=== PATIENT | male | born 1990 | race Caucasian/White ===

== ENCOUNTER 2018-01-23 07:27 | Emergency (ER) | payer OTHER ==
[2018-01-23 07:31] VITALS: BMI 19.6
[2018-01-23 07:33] VITALS: BP 116/69; PULSE 58; RESP 16; TEMP 97.9; O2SAT 100
--- NOTE | 2018-01-23 08:03 | ED PDOC ---
Lower Extremity Pain/Injury Time Seen by Provider: 01/23/18 07:55 Chief Complaint (Nursing): Lower Extremity Problem/Injury History Per: Patient History/Exam Limitations: no limitations Onset/Duration Of Symptoms: Other (x 6 months) Current Symptoms Are (Timing): Intermittent Episodes Additional Complaint(s): 27-year-old male presents to ED for left knee pain pain intermittently x 6 months. No recent injuries. Pain on bending and on ambulation. (-) fever. PMD: Joe Adhikari Past Medical History Reviewed: Historical Data, Nursing Documentation, Vital Signs Vital Signs: Last Vital Signs Temp 97.9 F 01/23/18 07:31 Pulse 58 L 01/23/18 07:31 Resp 16 01/23/18 07:31 BP 116/69 01/23/18 07:31 Pulse Ox 100 01/23/18 07:31 - Medical History PMH: No Chronic Diseases - Surgical History Surgical History: No Surg Hx - Family History Family History: States: Unknown Family Hx - Social History Current smoker - smoking cessation education provided: Yes Alcohol: Social Drugs: Denies - Immunization History Hx Tetanus Toxoid Vaccination: No Hx Influenza Vaccination: No Hx Pneumococcal Vaccination: No - Home Medications Home Medications: Ambulatory Orders Medication Instructions Recorded Naproxen [Naprosyn] 500 mg PO Q12H #20 tab 01/23/18 - Allergies Allergies/Adverse Reactions: Allergies Allergy/AdvReac Type Severity Reaction Status Date / Time No Known Allergies Allergy Verified 09/29/16 14:14 Review of Systems ROS Statement: Except As Marked, All Systems Reviewed And Found Negative Constitutional: Negative for: Fever Musculoskeletal: Positive for: Other (Left knee pain) Physical Exam - Reviewed Nursing Documentation Reviewed: Yes Vital Signs Reviewed: Yes - Physical Exam Extremity: Positive for: Other (Left knee: (+) mild discomfort in pain on flexion, tenderness over prepatellar area, (-) crepitus). Negative for: Swelling Neurologic/Psych: Positive for: Alert, Oriented (x 3). Negative for: Motor/ Sensory Deficits - ECG O2 Sat by Pulse Oximetry: 100 (RA) Pulse Ox Interpretation: Normal Medical Decision Making Medical Decision Making: Time: 08:00 Plan: - Left Knee X-Ray Scribe Attestation: Documented by Moisés Peterson, acting as a scribe for Florencio Burns MD Provider Scribe Attestation: All medical record entries made by the Scribe were at my direction and personally dictated by me. I have reviewed the chart and agree that the record accurately reflects my personal performance of the history, physical exam, medical decision making, and the department course for this patient. I have also personally directed, reviewed, and agree with the discharge instructions and disposition. Disposition - Clinical Impression Clinical Impression: Knee pain, Knee sprain - Patient ED Disposition Is Patient to be Admitted: No Counseled Patient/Family Regarding: Studies Performed, Diagnosis, Need For Followup, Rx Given - Disposition Referrals: Balbir Weeks MD [Staff Provider] - Disposition: Routine/Home Disposition Time: 09:05 Condition: FAIR Prescriptions: Naproxen [Naprosyn] 500 mg PO Q12H #20 tab Instructions: Knee Sprain (DC) Forms: [employer] (Montserratian)
--- NOTE | 2018-01-23 11:11 | RAD ---
PROCEDURE: Left Knee Radiographs. HISTORY: Pain. COMPARISON: None. FINDINGS: BONES: Normal. No fracture. JOINTS: Normal. No osteoarthritis. JOINT EFFUSION: None. OTHER FINDINGS: None. IMPRESSION: Normal radiographs of the left knee.
== END 2018-01-23 09:25 | disposition home or self-care (01) ==
LOC: H.ER 07:27
DX: M25.562 Pain in left knee (principal)

== ENCOUNTER 2018-04-23 19:09 | Emergency (ER) | payer OTHER, SELFPAY ==
[2018-04-23 19:09] VITALS: BMI 19.6
[2018-04-23] MEDS ORDERED: Alum-Mag Hydrox-Simethicone Susp (30 mL) ONE (21:03)
[2018-04-23] MEDS: Alum-Mag Hydrox-Simethicone Susp (30 mL) PO STA (21:07)
[2018-04-23 21:08] LABS: BASO # 0.1 K/uL (0.0-0.2); BASO % 0.8 % (0.0-2.0); EOS # 0.2 K/uL (0.0-0.7); EOS % 1.9 % (0.0-4.0); HEMOGLOBIN 14.8 g/dL (12.0-18.0); LYMPH # 2.9 K/uL (1.0-4.3); LYMPH % 33.8 % (20.0-40.0); MEAN CELL VOLUME 86.5 fl (80.0-94.0); MEAN CORPUSCULAR HEMOGLOBIN 29.5 pg (27.0-31.0); MEAN CORPUSCULAR HGB CONC 34.1 g/dL (33.0-37.0); MEAN PLATELET VOLUME 9.8 fl (7.2-11.7); MONO # 0.4 K/uL (0.0-0.8); MONO % 5.3 % (0.0-10.0); NEUT # 4.9 K/uL (1.8-7.0); NEUT % 58.2 % (50.0-75.0); NRBC % 0.1 % (0.0-0.0); RBC 5.03 Mil/uL (4.40-5.90); WHITE BLOOD COUNT 8.5 K/uL (4.8-10.8)
--- NOTE | 2018-04-23 21:41 | ED PDOC ---
HPI: Abdomen Time Seen by Provider: 04/23/18 20:20 Chief Complaint (Nursing): Abdominal Pain Chief Complaint (Provider): Abdominal Pain History Per: Patient History/Exam Limitations: no limitations Onset/Duration Of Symptoms: Intermittent Episodes (x1 week) Current Symptoms Are (Timing): Intermittent Episodes Additional Complaint(s): 27 year old male presents to the ED for evaluation of intermittent epigastric pain for one week associated with nausea and a decreased appetite. He also reports one episode of diarrhea at onset of symptoms, but it resolved by itself. Otherwise, denies vomiting, and black or bloody stool. PMD: Nabeel Issa Past Medical History Reviewed: Historical Data, Nursing Documentation, Vital Signs Vital Signs: Last Vital Signs Temp 98.1 F 04/23/18 19:17 Pulse 60 04/23/18 19:17 Resp 16 04/23/18 19:17 BP 133/76 04/23/18 19:17 Pulse Ox 98 04/23/18 21:45 - Medical History PMH: Gastritis - Surgical History Surgical History: No Surg Hx - Family History Family History: States: No Known Family Hx - Social History Current smoker - smoking cessation education provided: Yes Alcohol: Social Drugs: Denies - Immunization History Hx Tetanus Toxoid Vaccination: No Hx Influenza Vaccination: No Hx Pneumococcal Vaccination: No - Home Medications Home Medications: Ambulatory Orders Medication Instructions Recorded Naproxen [Naprosyn] 500 mg PO Q12H #20 tab 01/23/18 Famotidine [Pepcid] 40 mg PO DAILY PRN #30 tab 04/23/18 Ondansetron ODT [Zofran ODT] 1 odt PO Q6 PRN #20 odt 04/23/18 - Allergies Allergies/Adverse Reactions: Allergies Allergy/AdvReac Type Severity Reaction Status Date / Time No Known Allergies Allergy Verified 09/29/16 14:14 Review of Systems ROS Statement: Except As Marked, All Systems Reviewed And Found Negative Gastrointestinal: Positive for: Nausea, Abdominal Pain (epigastric), Diarrhea ( x1 episode). Negative for: Vomiting, Melena (or bloody stool) Physical Exam - Reviewed Nursing Documentation Reviewed: Yes Vital Signs Reviewed: Yes - Physical Exam Appears: Positive for: Non-toxic, No Acute Distress Head Exam: Positive for: ATRAUMATIC, NORMOCEPHALIC Skin: Positive for: Warm, Dry Eye Exam: Positive for: EOMI, PERRL ENT: Negative for: Pharyngeal Erythema, Tonsillar Exudate Neck: Positive for: Painless ROM, Supple Cardiovascular/Chest: Positive for: Regular Rate, Rhythm. Negative for: Murmur Respiratory: Positive for: Normal Breath Sounds. Negative for: Wheezing Gastrointestinal/Abdominal: Positive for: Tenderness (mild epigastric to palpation). Negative for: Mass, Guarding, Rebound, Other (valera's sign and mcburney's point tenderness) Back: Positive for: Normal Inspection. Negative for: Decreased ROM Extremity: Positive for: Normal ROM. Negative for: Deformity Lymphatic: Negative for: Adenopathy Neurologic/Psych: Positive for: Alert. Negative for: Motor/Sensory Deficits - Laboratory Results Result Diagrams: 04/23/18 21:03 04/23/18 21:03 - ECG O2 Sat by Pulse Oximetry: 98 (RA) Pulse Ox Interpretation: Normal Medical Decision Making Medical Decision Making: Time: 2049 Initial Impression: epigastric pain Ddx includes but is not limited to: gastritis, pancreatitis, reflux, dyspepsia Initial Plan: --EKG --CMP --Lipase --CBC with differential --Lidocaine 2% 10 ml PO --Maalox Plus 30 ml PO --Pepcid 40 mg PO Lab unremarkable. Pt's symptoms c/w non emergent pathology such as gastritis. DW pt findings and plan of care. Pepcid daily. Zofran prn. F/u PMD for GI referral. Scribe Attestation: Documented by Hanh Sanches, acting as a scribe for Diandra Harris MD. Provider Scribe Attestation: All medical record entries made by the Scribe were at my direction and personally dictated by me. I have reviewed the chart and agree that the record accurately reflects my personal performance of the history, physical exam, medical decision making, and the department course for this patient. I have also personally directed, reviewed, and agree with the discharge instructions and disposition. Disposition - Clinical Impression Clinical Impression: Abdominal pain Counseled Patient/Family Regarding: Studies Performed, Diagnosis, Need For Followup, Rx Given - Disposition Referrals: Jose Castanon [Medical Doctor] - 04/24/18 (VISITA A PAINTER DOCTOR POR LA MANANA A CHEQAR DE NUEVO Y POR UN REFERRAL A SPECIALISTA DE [place]) Daren Jenkins MD [Staff Provider] - Disposition: Routine/Home Disposition Time: 22:44 Condition: STABLE Prescriptions: Famotidine [Pepcid] 40 mg PO DAILY PRN #30 tab PRN Reason: reflux Ondansetron ODT [Zofran ODT] 1 odt PO Q6 PRN #20 odt PRN Reason: Nausea/Vomiting Instructions: Acute Abdomen (Belly Pain) Print Language: SLOVENIAN
[2018-04-23 22:48] LABS: ALB/GLOB RATIO 1.3 (1.0-2.1); ALBUMIN 4.3 g/dL (3.5-5.0); ALT/SGPT 24 U/L (21-72); AST/SGOT 45 U/L (17-59); BLOOD UREA NITROGEN 16 mg/dl (9-20); CALCIUM 9.5 mg/dL (8.4-10.2); GFR AFRICAN-AMERICAN > 60; GFR NON-AFRICAN AMERICAN > 60; LIPASE 47 U/L (23-300)
[2018-04-23 23:52] VITALS: BP 127/71; PULSE 64; RESP 17; TEMP 98.5; O2SAT 99
--- NOTE | 2018-04-24 07:17 | CARD ---
APPROVED REPORT Date of service: 04/23/2018 <Conclusion> Sinus bradycardia Otherwise normal ECG
== END 2018-04-23 22:52 | disposition home or self-care (01) ==
LOC: H.ER 19:09
DX: K29.70 Gastritis, unspecified, without bleeding (principal)

== ENCOUNTER 2018-04-28 23:23 | Emergency (ER) | payer SELFPAY ==
[2018-04-28 23:24] VITALS: BMI 19.6
[2018-04-29] MEDS ORDERED: Alum-Mag Hydrox-Simethicone Susp (30 mL) PO ONE (00:18)
--- NOTE | 2018-04-29 00:18 | ED PDOC ---
HPI: Abdomen History Per: Patient <Mireille Tate - Last Filed: 04/29/18 01:21> <Meka Del Rosario Y - Last Filed: 04/29/18 02:52> Chief Complaint (Nursing): Abdominal Pain Additional Complaint(s): 27M return to ER for epigastric discomfort after being seen in the ER 4 days ago for symptoms as per patient "exactly the same as before". He has been taking Pepcid as prescribed, however he reports he is still drinking soda, coffee, greasy foods and stopped smoking today. He denies any nausea, vomiting , diarrhea, SOB, chest pain. (ThahectorMireille) Past Medical History - Medical History PMH: No Chronic Diseases, Gastritis - Family History Family History: States: Unknown Family Hx - Immunization History Hx Tetanus Toxoid Vaccination: No Hx Influenza Vaccination: No Hx Pneumococcal Vaccination: No <Mireille Tate - Last Filed: 04/29/18 01:21> <Meka Del Rosario - Last Filed: 04/29/18 02:52> Vital Signs: Last Vital Signs Temp 97.7 F 04/28/18 23:34 Pulse 60 04/28/18 23:34 Resp 20 04/28/18 23:34 BP 121/76 04/28/18 23:34 Pulse Ox 100 04/29/18 01:22 - Home Medications Home Medications: Ambulatory Orders Medication Instructions Recorded Naproxen [Naprosyn] 500 mg PO Q12H #20 tab 01/23/18 Famotidine [Pepcid] 40 mg PO DAILY PRN #30 tab 04/23/18 Ondansetron ODT [Zofran ODT] 1 odt PO Q6 PRN #20 odt 04/23/18 - Allergies Allergies/Adverse Reactions: Allergies Allergy/AdvReac Type Severity Reaction Status Date / Time No Known Allergies Allergy Verified 04/28/18 23:34 Review of Systems ROS Statement: Except As Marked, All Systems Reviewed And Found Negative Gastrointestinal: Positive for: Abdominal Pain (epigastric) <Mireille Tate - Last Filed: 04/29/18 01:21> Physical Exam - Reviewed Vital Signs Reviewed: Yes - Physical Exam Appears: Positive for: Well, Non-toxic, No Acute Distress Head Exam: Positive for: ATRAUMATIC, NORMAL INSPECTION Skin: Positive for: Normal Color, Warm, Dry Eye Exam: Positive for: Normal appearance Neck: Positive for: Supple Cardiovascular/Chest: Positive for: Regular Rate, Rhythm Respiratory: Positive for: Normal Breath Sounds. Negative for: Crackles, Rales , Rhonchi, Wheezing Gastrointestinal/Abdominal: Positive for: Normal Exam, Bowel Sounds, Soft. Negative for: Tenderness (specifically no epigastric pain on palpation) Extremity: Positive for: Normal ROM Neurologic/Psych: Positive for: Alert <Mireille Tate - Last Filed: 04/29/18 01:21> - Laboratory Results Result Diagrams: 04/29/18 00:36 04/29/18 00:36 - ECG O2 Sat by Pulse Oximetry: 100 <Mireille Tate - Last Filed: 04/29/18 01:21> - Laboratory Results Result Diagrams: 04/29/18 00:36 04/29/18 00:36 <Meka Del Rosario - Last Filed: 04/29/18 02:52> Medical Decision Making <Mireille aTte - Last Filed: 04/29/18 01:21> <Meka Del Rosario - Last Filed: 04/29/18 02:52> Medical Decision Making: Ddx: gastritis, h. pylori infection - Mylanta, Pepcid - CBC, CMP - f/u PMD No anemia, however platelet-80 which is improved from prior visit. (Mireille Tate) 27yo male, recently treated for gastritis, comes to ER for evaluation of similar symptoms. Patient states he has mild mid epigastric pain but is able to tolerate PO intake. Labs reviewed and are within normal limits. Patient reports feeling better after Pepcid and Maalox and is stable for d/c home. (Meka Del Rosario Y) Disposition <Mireille Tate - Last Filed: 04/29/18 01:21> <Meka Del Rosario - Last Filed: 04/29/18 02:52> - Clinical Impression Clinical Impression: Gastritis - Disposition Referrals: [facility] [Outside] [facility] [Outside] Additional Instructions: FOLLOW UP WITH THE CLINIC IN 1-2 DAYS RETURN TO THE ED WITH ANY WORSENING OR CONCERNING SYMPTOMS Instructions: Gastritis (DC) Forms: [employer] (Swedish) - PA / [employer] / Resident Statement / has reviewed & agrees with the documentation as recorded. OSMIN has examined the patient and agrees with the treatment plan. <Meka Del Rosario Y - Last Filed: 04/29/18 02:52>
[2018-04-29 00:40] LABS: BASO % 0.5 % (0.0-2.0); EOS # 0.2 K/uL (0.0-0.7); EOS % 2.6 % (0.0-4.0); HEMOGLOBIN 14.2 g/dL (12.0-18.0); LYMPH # 2.2 K/uL (1.0-4.3); LYMPH % 33.6 % (20.0-40.0); MEAN CELL VOLUME 87.4 fl (80.0-94.0); MEAN CORPUSCULAR HEMOGLOBIN 29.6 pg (27.0-31.0); MEAN CORPUSCULAR HGB CONC 33.8 g/dL (33.0-37.0); MEAN PLATELET VOLUME 9.9 fl (7.2-11.7); MONO # 0.3 K/uL (0.0-0.8); MONO % 4.9 % (0.0-10.0); NEUT # 3.9 K/uL (1.8-7.0); NEUT % 58.4 % (50.0-75.0); RBC 4.79 Mil/uL (4.40-5.90); RED CELL DISTRIBUTION WIDTH 13.7 % (11.5-14.5); WHITE BLOOD COUNT 6.7 K/uL (4.8-10.8)
[2018-04-29] MEDS ORDERED: Alum-Mag Hydrox-Simethicone Susp (30 mL) ONE (00:40)
[2018-04-29 00:49] LABS: ALB/GLOB RATIO 1.4 (1.0-2.1); ALBUMIN 4.2 g/dL (3.5-5.0); ALT/SGPT 32 U/L (21-72); AST/SGOT 31 U/L (17-59); BLOOD UREA NITROGEN 14 mg/dl (9-20); CALCIUM 9.3 mg/dL (8.4-10.2); GFR AFRICAN-AMERICAN > 60; GFR NON-AFRICAN AMERICAN > 60; LIPASE 92 U/L (23-300)
[2018-04-29 03:06] VITALS: BP 125/87; PULSE 69; RESP 16; TEMP 98.5; O2SAT 98
== END 2018-04-29 03:05 | disposition home or self-care (01) ==
LOC: H.ER 23:23
DX: K29.70 Gastritis, unspecified, without bleeding (principal)

== ENCOUNTER 2018-07-13 13:07 | Emergency (ER) | payer SELFPAY ==
[2018-07-13 13:08] VITALS: BMI 19.6
[2018-07-13 13:15] VITALS: RESP 18; TEMP 97.7
--- NOTE | 2018-07-13 13:43 | ED PDOC ---
HPI: Chest Pain Time Seen by Provider: 07/13/18 13:20 Chief Complaint (Nursing): Chest Pain Chief Complaint (Provider): Chest pain History Per: Patient, Weight Loss Consultant (Evelia #[id number]) Additional Complaint(s): Pt reports sharp L sided CP X 1 week, intermittent, worse with deep breath, no radiation, no SOB, no nausea/vomiting. Did not take pain medication. Past Medical History Reviewed: Nursing Documentation, Vital Signs Vital Signs: Last Vital Signs Temp 97.7 F 07/13/18 13:11 Pulse 75 07/13/18 13:11 Resp 18 07/13/18 13:11 BP 116/68 07/13/18 13:11 Pulse Ox 99 07/13/18 13:11 - Medical History PMH: Gastritis Denies: Chronic Kidney Disease - Family History Family History: States: Unknown Family Hx - Social History Current smoker - smoking cessation education provided: Yes Alcohol: Occasional Drugs: Denies - Immunization History Hx Tetanus Toxoid Vaccination: No Hx Influenza Vaccination: No Hx Pneumococcal Vaccination: No - Home Medications Home Medications: Ambulatory Orders Medication Instructions Recorded Naproxen [Naprosyn] 500 mg PO Q12H #20 tab 01/23/18 Famotidine [Pepcid] 40 mg PO DAILY PRN #30 tab 04/23/18 Ondansetron ODT [Zofran ODT] 1 odt PO Q6 PRN #20 odt 04/23/18 Ibuprofen [Motrin] 600 mg PO Q6H PRN #20 tab 07/13/18 - Allergies Allergies/Adverse Reactions: Allergies Allergy/AdvReac Type Severity Reaction Status Date / Time No Known Allergies Allergy Verified 07/13/18 13:10 THOM Risk Score for UA/NSTEMI - THOM Risk Score Age > 64: NO 3 or more CAD Risk Factors: NO Known CAD (Stenosis greater than 50%): NO Aspirin use in past 7 days: NO Severe Angina: NO EKG ST changes greater than 0.5mm: NO Positive Cardiac Marker: NO THOM Score: 0 Risk %: 5% Wells Criteria for PE - Wells Criteria for Pulmonary Embolism Clinical Signs and Symptoms of DVT: No P.E is #1 Diagnosis, or Equally Likely: No Heart Rate >100: No Immobilization at least 3 days;Surgery previous 4 weeks: No Previous, objectively diagnosed PE or DVT: No Hemoptysis: No Malignancy w/treatment within 6 months, or palliative: No Total Score: 0 Review of Systems Constitutional: Negative for: Fever, Chills Cardiovascular: Positive for: Chest Pain. Negative for: Palpitations Respiratory: Negative for: Cough, Shortness of Breath Gastrointestinal: Negative for: Nausea, Vomiting, Abdominal Pain, Diarrhea Genitourinary Male: Negative for: Dysuria, Hematuria Musculoskeletal: Negative for: Neck Pain, Back Pain Skin: Negative for: Rash, Lesions Neurological: Negative for: Headache, Dizziness Physical Exam - Reviewed Nursing Documentation Reviewed: Yes Vital Signs Reviewed: Yes - Physical Exam Appears: Positive for: Well, No Acute Distress Head Exam: Positive for: ATRAUMATIC, NORMAL INSPECTION Skin: Positive for: Normal Color, Warm, Dry Eye Exam: Positive for: Normal appearance, EOMI, PERRL Neck: Positive for: Normal, Painless ROM, Supple Cardiovascular/Chest: Positive for: Regular Rate, Rhythm. Negative for: Murmur Respiratory: Positive for: Normal Breath Sounds. Negative for: Rales, Rhonchi, Wheezing Gastrointestinal/Abdominal: Positive for: Normal Exam Extremity: Positive for: Normal ROM. 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 O2 Sat by Pulse Oximetry: 99 Pulse Ox Interpretation: Normal Medical Decision Making Medical Decision Makin yo male with chest pain. - labs - EKG - CXR Accession No. : [id number] Patient Name / ID : ERNIE MENDOZA / [id number] Exam Date : 07/13/2018 13:46:22 ( Approved ) Study Comment : Sex / Age : M / 28Y Creator : Avery Haley MD Dictator : Avery Haley MD Fire Control Technician : Juvenile Court Liaison : Avery Haley MD Approver2 : Report Date : 07/13/2018 14:18:39 My Comment : Date of service: 07/13/2018 HISTORY: CP COMPARISON: No prior. TECHNIQUE: Chest PA and lateral FINDINGS: LUNGS: No active pulmonary disease. PLEURA: No significant pleural effusion identified. No pneumothorax apparent. CARDIOVASCULAR: No aortic atherosclerotic calcification present. Normal cardiac size. No pulmonary vascular congestion. OSSEOUS STRUCTURES: No significant abnormalities. VISUALIZED UPPER ABDOMEN: Normal. OTHER FINDINGS: None. IMPRESSION: No active disease. Disposition - Clinical Impression Clinical Impression: Atypical chest pain - Disposition Referrals: [facility] [place] [Outside] Disposition: Routine/Home Disposition Time: 15:52 Condition: STABLE Prescriptions: Ibuprofen [Motrin] 600 mg PO Q6H PRN #20 tab PRN Reason: Pain, Moderate (4-7) Instructions: Chest Pain Forms: [employer] (Djiboutian) Print Language: GEORGIAN - POMami Present On Arrival: Object Left In During Previous Surgery
--- NOTE | 2018-07-13 14:22 | RAD ---
Date of service: 07/13/2018 HISTORY: CP COMPARISON: No prior. TECHNIQUE: Chest PA and lateral FINDINGS: LUNGS: No active pulmonary disease. PLEURA: No significant pleural effusion identified. No pneumothorax apparent. CARDIOVASCULAR: No aortic atherosclerotic calcification present. Normal cardiac size. No pulmonary vascular congestion. OSSEOUS STRUCTURES: No significant abnormalities. VISUALIZED UPPER ABDOMEN: Normal. OTHER FINDINGS: None. IMPRESSION: No active disease.
[2018-07-13 14:37] LABS: URINE BILIRUBIN NEGATIVE (NEGATIVE); URINE BLOOD NEGATIVE (NEGATIVE); URINE CLARITY SLIGHTY-CLOUDY (Clear); URINE COLOR YELLOW (YELLOW); URINE GLUCOSE (UA) NEG (Normal); URINE LEUKOCYTE ESTERASE NEG Leu/uL (Negative); URINE PROTEIN NEGATIVE (NEGATIVE)
[2018-07-13 14:46] LABS: INR 1.1; PROTHROMBIN TIME 12.1 Seconds (9.8-13.1)
[2018-07-13 14:47] LABS: BASO % 0.3 % (0.0-2.0); EOS # 0.1 K/uL (0.0-0.7); HEMOGLOBIN 15.3 g/dL (12.0-18.0); LYMPH % 21.4 % (20.0-40.0); MEAN CELL VOLUME 86.7 fl (80.0-94.0); MEAN CORPUSCULAR HEMOGLOBIN 29.5 pg (27.0-31.0); MEAN PLATELET VOLUME 10.2 fl (7.2-11.7); MONO # 0.5 K/uL (0.0-0.8); MONO % 5.7 % (0.0-10.0); NEUT # 6.6 K/uL (1.8-7.0); NEUT % 71.6 % (50.0-75.0); RBC 5.2 Mil/uL (4.40-5.90); RED CELL DISTRIBUTION WIDTH 13.4 % (11.5-14.5); WHITE BLOOD COUNT 9.3 K/uL (4.8-10.8)
[2018-07-13 14:49] LABS: PARTIAL THROMBOPLASTIN TIME 35.9 Seconds (25.6-37.1)
[2018-07-13 14:57] LABS: D DIMER < 200 ng/mlDDU (0-230)
[2018-07-13 15:12] LABS: ALB/GLOB RATIO 1.3 (1.0-2.1); ALBUMIN 4.3 g/dL (3.5-5.0); ALT/SGPT 34 U/L (21-72); AST/SGOT 40 U/L (17-59); BLOOD UREA NITROGEN 18 mg/dl (9-20); CALCIUM 9.4 mg/dL (8.4-10.2); GFR NON-AFRICAN AMERICAN > 60
[2018-07-13 16:34] VITALS: BP 122/55; PULSE 62
--- NOTE | 2018-07-13 16:43 | CARD ---
APPROVED REPORT Date of service: 07/13/2018 EKG Measurement Heart [id number] <Conclusion> Normal sinus rhythm Normal ECG
[2018-07-13 18:02] VITALS: O2SAT 99
== END 2018-07-13 16:35 | disposition home or self-care (01) ==
LOC: H.ER 13:07
DX: R07.89 Other chest pain (principal); F17.200 Nicotine dependence, unspecified, uncomplicated

== ENCOUNTER 2018-09-07 14:47 | Emergency (ER) | payer SELFPAY ==
[2018-09-07 14:47] VITALS: BMI 19.6
[2018-09-07 15:10] VITALS: TEMP 98.4
[2018-09-07] MEDS ORDERED: Sodium Chloride 0.9% 1,000 ML IV STA (16:23)
[2018-09-07] MEDS ORDERED: Alum-Mag Hydrox-Simethicone Susp (30 mL) PO STA (16:23)
[2018-09-07 16:43] LABS: BASO % 0.3 % (0.0-2.0); EOS # 0.2 K/uL (0.0-0.7); EOS % 1.4 % (0.0-4.0); HEMOGLOBIN 15.6 g/dL (12.0-18.0); LYMPH # 3.3 K/uL (1.0-4.3); LYMPH % 29.8 % (20.0-40.0); MEAN CELL VOLUME 86.3 fl (80.0-94.0); MEAN CORPUSCULAR HEMOGLOBIN 28.8 pg (27.0-31.0); MEAN CORPUSCULAR HGB CONC 33.3 g/dL (33.0-37.0); MEAN PLATELET VOLUME 10.5 fl (7.2-11.7); MONO # 0.6 K/uL (0.0-0.8); MONO % 5.2 % (0.0-10.0); NEUT % 63.3 % (50.0-75.0); NRBC % 0.1 % (0.0-0.0); RBC 5.41 Mil/uL (4.40-5.90); RED CELL DISTRIBUTION WIDTH 13.3 % (11.5-14.5); WHITE BLOOD COUNT 11.1 K/uL (4.8-10.8)
--- NOTE | 2018-09-07 16:44 | ED PDOC ---
HPI: Abdomen Time Seen by Provider: 09/07/18 15:59 Chief Complaint (Nursing): Abdominal Pain History Per: Patient Additional Complaint(s): Pt. states for the past 2 weeks he's had intermittent epigastric abdominal pain. Reports pain resolves and comes about spontaneously. Has been taking Pepcid without relief. Further states he's had the same symptoms in the past but has never f/u outpt but was seen in the ED in the past. Denies chest koch, back pain, N/V/D, melena, hematochezia, BRBPR, previous abdominal surgeries, weakness, numbness, tingling, SOB. Past Medical History Reviewed: Historical Data, Nursing Documentation, Vital Signs Vital Signs: Last Vital Signs Temp 98.4 F 09/07/18 15:08 Pulse 80 09/07/18 15:08 Resp 16 09/07/18 15:08 BP 121/70 09/07/18 15:08 Pulse Ox 100 09/07/18 15:08 - Medical History PMH: Gastritis Denies: Chronic Kidney Disease - Surgical History Surgical History: No Surg Hx - Family History Family History: States: No Known Family Hx - Immunization History Hx Tetanus Toxoid Vaccination: No Hx Influenza Vaccination: No Hx Pneumococcal Vaccination: No - Home Medications Home Medications: Ambulatory Orders Medication Instructions Recorded Naproxen [Naprosyn] 500 mg PO Q12H #20 tab 01/23/18 Famotidine [Pepcid] 40 mg PO DAILY PRN #30 tab 04/23/18 Ondansetron ODT [Zofran ODT] 1 odt PO Q6 PRN #20 odt 04/23/18 Ibuprofen [Motrin] 600 mg PO Q6H PRN #20 tab 07/13/18 Ranitidine HCl [Zantac] 150 mg PO DAILY PRN #10 tablet 09/07/18 - Allergies Allergies/Adverse Reactions: Allergies Allergy/AdvReac Type Severity Reaction Status Date / Time No Known Allergies Allergy Verified 07/13/18 13:10 Review of Systems ROS Statement: Except As Marked, All Systems Reviewed And Found Negative Gastrointestinal: Positive for: Abdominal Pain Physical Exam - Physical Exam Appears: Positive for: Well, Non-toxic, No Acute Distress Skin: Positive for: Normal Color, Warm. Negative for: Rash Eye Exam: Positive for: Normal appearance. Negative for: Scleral icterus (b/l) Cardiovascular/Chest: Positive for: Regular Rate, Rhythm Respiratory: Positive for: Normal Breath Sounds. Negative for: Respiratory Distress Gastrointestinal/Abdominal: Positive for: Normal Exam, Soft. Negative for: Tenderness Neurologic/Psych: Positive for: Alert, Oriented (x3). Negative for: Aphasia, Facial Droop - Laboratory Results Result Diagrams: 09/07/18 16:29 09/07/18 16:29 Urine dip results: Negative for: Leukocyte Esterase, Blood, Nitrate, Ketones, Glucose, Bilirubin, Protein - ECG O2 Sat by Pulse Oximetry: 100 - Progress ED Course And Treament: Labs, pepcid 40mg IV, maalox, 30ml PO, viscous lidocaine 15ml PO, EKG ordered. Re-evaluation Time: 18:44 (Abd soft and non-tender. Advised to f/u with PMD or GI for further evaluation of abdominal pain. Pt. is to return to ED immediately if symptoms worsen. Pt. had full meal in ED. Tolerated PO in ED. ) Condition: Re-examined, Improved Disposition - Clinical Impression Clinical Impression: Dyspepsia - Patient ED Disposition Is Patient to be Admitted: No - Disposition Referrals: [facility] [Outside] Disposition: Routine/Home Disposition Time: 18:45 Condition: IMPROVED Additional Instructions: FOLLOW UP WITH PMD FOR FURTHER EVALUATION RETURN TO ED IMMEDIATELY IF SYMPTOMS WORSEN KELLY ANDINO, thank you for letting us take care of you today. Your provider was Isa Colin MD and you were treated for ABD PAIN. The emergency medical care you received today was directed at your acute symptoms. If you were prescribed any medication, please fill it and take as directed. It may take several days for your symptoms to resolve. Return to the Emergency Department if your symptoms worsen, do not improve, or if you have any other problems. Please contact your doctor or call one of the physicians/clinics you have been referred to that are listed on the Patient Visit Information form that is included in your discharge packet. Bring any paperwork you were given at discharge with you along with any medications you are taking to your follow up visit. Our treatment cannot replace ongoing medical care by a primary care provider outside of the emergency department. Thank you for allowing the [x+1] team to be part of your care today. If you had an X-Ray or CT scan: A Radiologist will review the ED reading if any change in treatment is needed we will contact you. If you had a blood, urine, or wound culture: It will take several days for the results, if any change in treatment is needed we will contact you. If you had an STI test: It will take 48 hours for the results. Please call after 1 week if you have not heard back. Prescriptions: Ranitidine HCl [Zantac] 150 mg PO DAILY PRN #10 tablet PRN Reason: abdominal pain Instructions: Dyspepsia Forms: [employer] (Bhutanese) Print Language: NIGERIAN
[2018-09-07 16:48] LABS: ALB/GLOB RATIO 1.3 (1.0-2.1); ALT/SGPT 31 U/L (21-72); AST/SGOT 34 U/L (17-59); BLOOD UREA NITROGEN 24 mg/dl (9-20); CALCIUM 9.8 mg/dL (8.4-10.2); GFR NON-AFRICAN AMERICAN > 60; LIPASE 68 U/L (23-300)
[2018-09-07] MEDS ORDERED: Alum-Mag Hydrox-Simethicone Susp (30 mL) ONE (16:53)
[2018-09-07 19:12] VITALS: BP 118/76; PULSE 82; RESP 18
[2018-09-07 19:44] VITALS: O2SAT 100
== END 2018-09-07 19:09 | disposition home or self-care (01) ==
LOC: H.ER 14:47
DX: R10.13 Epigastric pain (principal)
CPT/HCPCS: 80053; 83690; 85025; 96361; 96374; 96375; 99283; J2405; J7030

== ENCOUNTER 2018-11-18 18:07 | Emergency (ER) | payer SELFPAY ==
[2018-11-18 18:08] VITALS: BMI 19.6
[2018-11-18 18:45] VITALS: RESP 18
--- NOTE | 2018-11-18 19:05 | ED PDOC ---
HPI: Abdomen Time Seen by Provider: 11/18/18 18:38 Chief Complaint (Nursing): Abdominal Pain Chief Complaint (Provider): ABDOMINAL PAIN/BLOODY SALIVA History Per: Patient (28 Y/O MALE HERE WITH ABDOMINAL PAIN EPIGASTRIC INTERMITTENT ON AND OFF NOW TODAY WITH NOTICE OF BLOOD STREAKED SALIVA. PATIENT DENIES ANY VOMITING. NOTES RECENT NOSEBLEEDS.) Past Medical History Reviewed: Historical Data, Nursing Documentation, Vital Signs Vital Signs: Last Vital Signs Temp 98.4 F 11/18/18 18:41 Pulse 66 11/18/18 18:41 Resp 18 11/18/18 18:41 BP 127/82 11/18/18 18:41 Pulse Ox 99 11/18/18 18:41 - Medical History PMH: Gastritis Denies: Chronic Kidney Disease - Family History Family History: States: Unknown Family Hx - Immunization History Hx Tetanus Toxoid Vaccination: No Hx Influenza Vaccination: No Hx Pneumococcal Vaccination: No - Home Medications Home Medications: Ambulatory Orders Medication Instructions Recorded Naproxen [Naprosyn] 500 mg PO Q12H #20 tab 01/23/18 Famotidine [Pepcid] 40 mg PO DAILY PRN #30 tab 04/23/18 Ondansetron ODT [Zofran ODT] 1 odt PO Q6 PRN #20 odt 04/23/18 Ibuprofen [Motrin] 600 mg PO Q6H PRN #20 tab 07/13/18 Ranitidine HCl [Zantac] 150 mg PO DAILY PRN #10 tablet 09/07/18 Pantoprazole Sodium [Protonix] 40 mg PO DAILY #14 ect 11/18/18 - Allergies Allergies/Adverse Reactions: Allergies Allergy/AdvReac Type Severity Reaction Status Date / Time No Known Allergies Allergy Verified 07/13/18 13:10 Review of Systems ROS Statement: Except As Marked, All Systems Reviewed And Found Negative Physical Exam - Reviewed Nursing Documentation Reviewed: Yes Vital Signs Reviewed: Yes - Physical Exam Appears: Positive for: Well, Non-toxic, No Acute Distress Head Exam: Positive for: ATRAUMATIC, NORMAL INSPECTION, NORMOCEPHALIC Skin: Positive for: Normal Color, Warm, DRY Eye Exam: Positive for: EOMI, Normal appearance, PERRL ENT: Positive for: Normal ENT Inspection Neck: Positive for: Normal, Painless ROM Cardiovascular/Chest: Positive for: Regular Rate, Rhythm Respiratory: Positive for: CNT, Normal Breath Sounds Gastrointestinal/Abdominal: Positive for: Normal Exam, Soft, Tenderness (EPIGASTRIC TENDERNESS) Back: Positive for: Normal Inspection Extremity: Positive for: Normal ROM Neurologic/Psych: Positive for: Alert, Oriented - Laboratory Results Result Diagrams: 11/18/18 19:19 11/18/18 19:19 - ECG O2 Sat by Pulse Oximetry: 99 - Progress ED Course And Treament: PEPCID 20 MG IV X 1 DOSE Disposition - Clinical Impression Clinical Impression: Gastritis, Epistaxis - Patient ED Disposition Is Patient to be Admitted: No - Disposition Referrals: Daren Purdy MD [Medical Doctor] - Disposition: Routine/Home Disposition Time: 20:18 Condition: FAIR Prescriptions: Pantoprazole Sodium [Protonix] 40 mg PO DAILY #14 ect Instructions: Nosebleeds (DC), Gastritis (DC) Forms: [facility] ED School/Work Excuse Print Language: GERMAN
[2018-11-18] MEDS ORDERED: Sodium Chloride 0.9% 1,000 ML IV STA (19:06)
[2018-11-18 19:30] LABS: BASO % 0.4 % (0.0-2.0); EOS % 0.5 % (0.0-4.0); HEMOGLOBIN 14.4 g/dL (12.0-18.0); LYMPH # 2.4 K/uL (1.0-4.3); LYMPH % 28.7 % (20.0-40.0); MEAN CELL VOLUME 85.6 fl (80.0-94.0); MEAN CORPUSCULAR HEMOGLOBIN 28.9 pg (27.0-31.0); MEAN CORPUSCULAR HGB CONC 33.8 g/dL (33.0-37.0); MEAN PLATELET VOLUME 9.9 fl (7.2-11.7); MONO # 0.4 K/uL (0.0-0.8); MONO % 5.1 % (0.0-10.0); NEUT # 5.4 K/uL (1.8-7.0); NEUT % 65.3 % (50.0-75.0); NRBC % 0.1 % (0.0-0.0); RBC 4.98 Mil/uL (4.40-5.90); RED CELL DISTRIBUTION WIDTH 12.8 % (11.5-14.5); WHITE BLOOD COUNT 8.3 K/uL (4.8-10.8)
[2018-11-18 19:55] LABS: PROTHROMBIN TIME 11.1 Seconds (9.8-13.1)
[2018-11-18 19:58] LABS: PARTIAL THROMBOPLASTIN TIME 35.6 Seconds (25.6-37.1)
[2018-11-18 20:16] LABS: ALB/GLOB RATIO 1.5 (1.0-2.1); ALBUMIN 4.7 g/dL (3.5-5.0); ALT/SGPT 27 U/L (21-72); AST/SGOT 33 U/L (17-59); BLOOD UREA NITROGEN 17 mg/dl (9-20); GFR NON-AFRICAN AMERICAN > 60; LIPASE 60 U/L (23-300)
[2018-11-18 20:33] VITALS: BP 121/80; PULSE 60; TEMP 98.1; O2SAT 100
== END 2018-11-18 20:32 | disposition home or self-care (01) ==
LOC: H.ER 18:07
DX: K29.70 Gastritis, unspecified, without bleeding (principal); R04.0 Epistaxis
CPT/HCPCS: 80053; 83690; 85025; 85610; 85730; 96374; 99283; J7030